=== PATIENT | female | born 1975 | race Caucasian/White ===

== ENCOUNTER 2018-06-15 13:55 | Emergency (ER) | payer OTHER ==
[2018-06-15 14:16] VITALS: BP 125/78
--- NOTE | 2018-06-15 14:53 | UC ---
Complaint Female HPI - HPI Summary HPI Summary: Started getting urinary frequency, pressure, burning 1-2 days ago. Feels like previous UTIs. Denies vaginal symptoms; is in steady sexual relationship, has no concerns about STIs. No fever or back pain. - History Of Current Complaint Chief Complaint: [facility] Stated Complaint: URINARY COMPLAINT Time Seen by Provider: 06/15/18 14:36 Hx Obtained From: Patient Hx Last Menstrual Period: 06/01/18 Onset/Duration: Gradual Onset, Lasting Days Timing: Constant Severity Initially: Mild Severity Currently: Moderate Pain Intensity: 3 Character: Burning Aggravating Factor(s): Urination Alleviating Factor(s): Nothing Associated Signs And Symptoms: Positive: Negative Related Hx: Similar Episode/Dx as: - UTI - Allergies/Home Medications Allergies/Adverse Reactions: Allergies Allergy/AdvReac Type Severity Reaction Status Date / Time No Known Allergies Allergy Verified 06/15/18 14:16 Home Medications: Home Medications Depression Med 06/15/18 [History] PMH/Surg Hx/FS Hx/Imm Hx Other Endocrine History: obesity - Surgical History Surgical History: Yes Surgery Procedure, Year, and Place: TUBAL. EYE SURGERY. GASTRIC BYPASS - Family History Known Family History: Positive: Hypertension - Social History Lives: With Family Alcohol Use: None Substance Use Type: None Smoking Status (MU): Never Smoked Tobacco Review of Systems Constitutional: Negative Skin: Negative Eyes: Negative ENT: Negative Respiratory: Negative Cardiovascular: Negative Gastrointestinal: Negative Genitourinary: Dysuria, Frequency, Urgency Motor: Negative Neurovascular: Negative Musculoskeletal: Negative Neurological: Negative Psychological: Negative Is Patient Immunocompromised?: No All Other Systems Reviewed And Are Negative: Yes Physical Exam Triage Information Reviewed: Yes Appearance: Well-Appearing, No Pain Distress, Obese Vital Signs: Initial Vital Signs Temp 97.3 F 06/15/18 14:12 Pulse 71 06/15/18 14:12 Resp 16 06/15/18 14:12 BP 125/78 06/15/18 14:12 Pulse Ox 98 06/15/18 14:12 Vital Signs Reviewed: Yes Eye Exam: Normal Eyes: Positive: Conjunctiva Clear ENT Exam: Normal ENT: Positive: Normal ENT inspection, Hearing grossly normal, Pharynx normal, TMs normal Dental Exam: Normal Neck exam: Normal Neck: Positive: Supple, Nontender, No Lymphadenopathy Respiratory Exam: Normal Respiratory: Positive: Chest non-tender, Lungs clear, Normal breath sounds, No respiratory distress, No accessory muscle use Cardiovascular Exam: Normal Cardiovascular: Positive: RRR, No Murmur Abdomen Description: Negative: CVA Tenderness (R), CVA Tenderness (L) Musculoskeletal Exam: Normal Neurological Exam: Normal Neurological: Positive: Alert Psychological Exam: Normal Skin Exam: Normal Complaint Female Dx - Differential Dx/Diagnosis Provider Diagnoses: UTI Discharge - Sign-Out/Discharge Documenting (check all that apply): Patient Departure All imaging exams completed and their final reports reviewed: No Studies - Discharge Plan Condition: Stable Disposition: HOME Prescriptions: Nitrofurantoin Monohyd/M-Cryst [Macrobid 100 mg Capsule] 100 mg PO BID #10 cap Patient Education Materials: Urinary Tract Infection in Women (ED) Referrals: No Primary Care Phys,NOPCP [Primary Care Provider] - Additional Instructions: If you are not improving within 2 days of antibiotics, please see your primary care provider or come back here for a recheck. - Billing Disposition and Condition Condition: STABLE Disposition: Home
== END 2018-06-15 14:56 | disposition home or self-care (01) ==
LOC: UCCORT 13:55
DX: N39.0 Urinary tract infection, site not specified (principal)
CPT/HCPCS: 81003; 87086; 99202; G0463